=== PATIENT | female | born 1960 ===

== ENCOUNTER 2018-06-01 12:26 | Outpatient (CLI) | payer OTHER | END 2018-06-01 12:36 | disposition home or self-care (01) | LOC: LAB 12:26 | DX: D51.0 Vitamin B12 deficiency anemia due to intrinsic factor deficiency (principal); D51.1 Vitamin B12 deficiency anemia due to selective vitamin B12 malabsorption with proteinuria; D51.3 Other dietary vitamin B12 deficiency anemia; I10 Essential (primary) hypertension; E11.9 Type 2 diabetes mellitus without complications; E03.8 Other specified hypothyroidism; E78.2 Mixed hyperlipidemia; D50.8 Other iron deficiency anemias; D51.8 Other vitamin B12 deficiency anemias; M32.8 Other forms of systemic lupus erythematosus; M81.0 Age-related osteoporosis without current pathological fracture; E06.3 Autoimmune thyroiditis; R97.0 Elevated carcinoembryonic antigen [CEA] ==

== ENCOUNTER → 2018-06-01 | Outpatient (CLI) | payer OTHER ==
[~2018-06-01] MED LIST: CEFADROXIL500 MG PO; [UNRECOGNIZED DRUG - OTHER] PO; [UNRECOGNIZED DRUG - OTHER] PO
== END | disposition home or self-care (01) ==
LOC: SONOGRAMA 11:11
DX: D51.0 Vitamin B12 deficiency anemia due to intrinsic factor deficiency (principal); D51.1 Vitamin B12 deficiency anemia due to selective vitamin B12 malabsorption with proteinuria; D51.3 Other dietary vitamin B12 deficiency anemia; I10 Essential (primary) hypertension; E11.9 Type 2 diabetes mellitus without complications; E03.8 Other specified hypothyroidism; E78.2 Mixed hyperlipidemia